=== PATIENT | male | born 1955 | race Caucasian/White ===

== ENCOUNTER 2020-03-27 12:37 | Emergency (ER) | payer MEDICARE, SELFPAY ==
[2020-03-27] VITALS (8 sets, daily range): BP systolic 129–185; BP diastolic 62–98; PULSE 52–63; RESP 15–19; TEMP 36.4; O2SAT 95–97; BMI 26.6
--- NOTE | 2020-03-27 12:49 | PC.NURSE ---
EKG done at 1247, and shown to ER doctor. Blood glucose is 210, nurse, charge nurse, and doctor were in formed.
[2020-03-27 12:51] LABS: Glucose Point of Care 210 mg/dL (70-110)
--- NOTE | 2020-03-27 13:00 | ED_ITS ---
HPI - Neuro Symptoms/Deficit General: Chief Complaint: Neuro Symptoms/Deficit Stated Complaint: stroke like symptoms Time Seen by Provider: 03/27/20 12:47 History of Present Illness: HPI Narrative: 64-year-old male comes in complaining of numbness and tingling in the left arm and left side of his chest sparing the left leg it started yesterday afternoon he also the left eye feels heavy on occasion he has had some blurry vision and coordination with the left arm and chest numbness. He gets disoriented and dizzy with this at the same time. States the symptoms have been waxing and waning since yesterday when they started. He has not noticed any chest pain. He has his normal baseline cough which is not changed from his usual. Onset (ago): day(s) (Yesterday related mid afternoon) Timing confirmed by: spouse Location: left arm and other (Left chest) History of same: No Severity: moderate Quality: numb and tingling Relieving factors: none Exacerbating factors: none Context: gradual onset On Anticoagulants: Yes Associated symptoms: Reports cough; Deny chest pain, diaphoresis, fevers/chills, headache(s), anorexia, malaise, nausea, seizures, short of breath, syncope, vomiting or weakness Treatments Prior to Arrival: none Review of Systems Const: Denies: malaise or diaphoresis ENMT: Denies: throat pain, ear or mastoid pain, nasal discharge or nasal congestion Card: Denies: chest pain or syncope Resp: Denies: dyspnea, productive cough or non-productive cough GI: Denies: nausea or vomiting : Denies: flank pain, dysuria, urinary frequency or urinary urgency Skin/Breast: Denies: rash or pruritus Neuro: Denies: headache(s) PFSH ED PFSH: Medical History (Updated 03/27/20 @ 16:35 by Brendon Campbell DO) CAD (coronary artery disease) COPD (chronic obstructive pulmonary disease) CVA (cerebral vascular accident) Peripheral vascular disease Surgical History (Updated 03/27/20 @ 13:09 by Brendon Campbell DO) History of carotid endarterectomy Hx of CABG 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 Iliac/femoral stenting Social History (Updated 03/27/20 @ 13:10 by Brendon Campbell DO) Smoking and tobacco status: never smoked Substance/Drug Use: never NIH stroke score NIHSS: Level Of Consciousness - 1a: 0 Level Of Consciousness Questions - 1b: Both Correct Level Of Consciousness Commands - 1c: Both Correct Best Gaze - 2: Normal Visual Danielle - 3: No Visual Loss Facial Palsy - 4: Normal Motor Arm Right - 5: No Drift Motor Arm Left - 5: No Drift Motor Leg Right - 6: No Drift Motor Leg Left - 6: No Drift Limb Ataxia - 7: Absent Sensory - 8: Normal Best Language - 9: No Aphasia Dysarthia - 10: Normal Extinction And Inattention - 11: 0 Score: Total Score: 0 Course Vital Signs: Vital signs: Vital Signs Temperature 97.6 F 03/27/20 12:44 Pulse Rate 56 L 03/27/20 16:56 Respiratory Rate 18 03/27/20 16:56 Blood Pressure 142/81 03/27/20 16:56 Pulse Oximetry 97 03/27/20 16:56 MDM - Neuro Symptoms/Deficit MDM Narrative: Medical decision making narrative: Reviewed findings with the patient. Will discharge home started on clopidogrel along with his aspirin follow-up with his primary care doctor as soon as possible for referral to vascular surgery Lab Data: Labs: Lab Results 03/27/20 03/27/20 03/27/20 Range/Units 12:43 12:50 12:50 WBC 6.8 (4.0-10.0) 10^3/ uL RBC 4.27 (4.1-5.3) 10^6/u L Hgb 13.4 (11.7-16.6) g/dL Hct 41.4 L (42.0-52.0) % MCV 97.0 H (80-94) fL MCH 31.4 (28.0-34.0) pg MCHC 32.4 (30.0-36.0) g/dL RDW 13.4 (12.1-15.1) % Plt Count 124 L (130-400) 10^3/c mm MPV 12.7 H (7.4-10.4) fL Neut % (Auto) 65.5 % Lymph % (Auto) 18.5 % [place] % (Auto) 10.2 % Eos % (Auto) 3.9 % Baso % (Auto) 1.0 % Neut # (Auto) 4.42 (1.8-7.7) 10^3/u L Lymph # (Auto) 1.3 (0.8-4.8) 10^3/u L [place] # (Auto) 0.7 (0.2-0.9) 10^3/u L Eos # (Auto) 0.3 (0.0-0.8) 10^3/u L Baso # (Auto) 0.1 (0.0-0.1) 10^3/u L Nucleated RBC % (a uto) 0 % Nucleated RBCs # 0.0 /100WBC PT 12.70 (10.5-13.3) SECO NDS INR 0.92 (0.8-1.2) APTT 24.6 (23.9-36.7) SECO NDS Sodium (136-145) mmol/L Potassium (3.5-5.1) mmol/L Chloride (98-107) mmol/L Carbon Dioxide (22-29) mmol/L Anion Gap (5-19) BUN (8-23) mg/dL Creatinine (0.7-1.2) mg/dL GFR Calculation (90-130) mL/min Glucose (65-115) mg/dL POC Glucose 210 (70-110) mg/dL Calculated Osmolal ity (285-295) mOsm/k g Calcium (8.5-10.5) mg/dL Total Bilirubin (0.15-1.2) mg/dL AST (0-40) U/L ALT (0-41) U/L Alkaline Phosphata se (40-130) IU/L Total Protein (6.6-8.7) g/dL Albumin (3.5-5.2) g/dL Globulin (1.3-4.6) g/dL Urine Color (Yellow) Urine Appearance (CLEAR) Urine pH (5-7) Ur Specific Gravit y (1.005-1.030) Urine Protein (Negative) Urine Glucose (UA) (Normal) Urine Ketones (Negative) Urine Blood (Negative) Urine Nitrate (Negative) Urine Bilirubin (NEGATIVE) Urine Urobilinogen (Negative) mg/dL Ur Leukocyte Suzi ase (Negative) Urine Opiates Scre en (Negative) ng/mL Ur Barbiturates Sc reen (Negative) ng/mL Ur Phencyclidine S crn (Negative) ng/mL Ur Amphetamines Sc reen (Negative) ng/mL U Benzodiazepines Scrn (Negative) ng/mL Urine Cocaine Scre en (Negative) ng/mL U Marijuana (THC) Screen (Negative) ng/mL 03/27/20 03/27/20 03/27/20 Range/Units 12:50 14:30 14:30 WBC (4.0-10.0) 10^3/ uL RBC (4.1-5.3) 10^6/u L Hgb (11.7-16.6) g/dL Hct (42.0-52.0) % MCV (80-94) fL MCH (28.0-34.0) pg MCHC (30.0-36.0) g/dL RDW (12.1-15.1) % Plt Count (130-400) 10^3/c mm MPV (7.4-10.4) fL Neut % (Auto) % Lymph % (Auto) % [place] % (Auto) % Eos % (Auto) % Baso % (Auto) % Neut # (Auto) (1.8-7.7) 10^3/u L Lymph # (Auto) (0.8-4.8) 10^3/u L [place] # (Auto) (0.2-0.9) 10^3/u L Eos # (Auto) (0.0-0.8) 10^3/u L Baso # (Auto) (0.0-0.1) 10^3/u L Nucleated RBC % (a uto) % Nucleated RBCs # /100WBC PT (10.5-13.3) SECO NDS INR (0.8-1.2) APTT (23.9-36.7) SECO NDS Sodium 135 L (136-145) mmol/L Potassium 4.2 (3.5-5.1) mmol/L Chloride 100 (98-107) mmol/L Carbon Dioxide 25 (22-29) mmol/L Anion Gap 14.2 (5-19) BUN 12 (8-23) mg/dL Creatinine 1.1 (0.7-1.2) mg/dL GFR Calculation 67.4 L (90-130) mL/min Glucose 192 H (65-115) mg/dL POC Glucose (70-110) mg/dL Calculated Osmolal ity 281 L (285-295) mOsm/k g Calcium 9.4 (8.5-10.5) mg/dL Total Bilirubin 0.4 (0.15-1.2) mg/dL AST 21 (0-40) U/L ALT 25 (0-41) U/L Alkaline Phosphata se 88 (40-130) IU/L Total Protein 7.4 (6.6-8.7) g/dL Albumin 4.5 (3.5-5.2) g/dL Globulin 2.9 (1.3-4.6) g/dL Urine Color Straw (Yellow) Urine Appearance Clear (CLEAR) Urine pH 6 (5-7) Ur Specific Gravit y 1.005 (1.005-1.030) Urine Protein Neg (Negative) Urine Glucose (UA) Norm (Normal) Urine Ketones Negative (Negative) Urine Blood Neg (Negative) Urine Nitrate Negative (Negative) Urine Bilirubin Neg (NEGATIVE) Urine Urobilinogen Norm (Negative) mg/dL Ur Leukocyte Suzi ase Negative (Negative) Urine Opiates Scre en Negative (Negative) ng/mL Ur Barbiturates Sc reen Negative (Negative) ng/mL Ur Phencyclidine S crn Negative (Negative) ng/mL Ur Amphetamines Sc reen Negative (Negative) ng/mL U Benzodiazepines Scrn Negative (Negative) ng/mL Urine Cocaine Scre en Negative (Negative) ng/mL U Marijuana (THC) Screen Negative (Negative) ng/mL Discharge Plan Discharge Patient Disposition: Home Clinical Impression: Transient cerebral ischemia, Stenosis of left vertebral artery, Carotid artery stenosis Condition: Stable Prescriptions: No Action atorvastatin 80 mg tablet 80 mg PO DAILY RF: 0 amiodarone 200 mg tablet 200 mg PO DAILY RF: 0 clopidogrel 75 mg tablet 75 mg PO DAILY RF: 0 isosorbide mononitrate 60 mg tablet extended release 24 hr 60 mg PO DAILY RF: 0 metoprolol tartrate 50 mg tablet 50 mg PO BID RF: 0 nitroglycerin 0.4 mg tablet, sublingual 0.4 mg sublingual PRN PRN (Reason: Chest Pain) RF: 0 aspirin 81 mg Tablet,Chewable 81 mg PO DAILY RF: 0 lisinopril 40 mg tablet 40 mg PO DAILY RF: 0 Discharge Orders: Discharge Order (Routine); Ordered 03/27/20 Ordered By: Brendon Campbell Discharge Diet: Usual diet Discharge Activity: Increase activity as tolerated Activity Restrictions/Additional Instructions: Monitor blood pressure closely. If you have persistent symptoms of numbness tingling or weakness return to the ER. Follow-up with your primary care doctor as soon as you are able for referral to vascular surgery. Discharge Date/Time: 03/27/20 16:57 Coding Level of Care Code ED [employer]ing Machine Operator for Jonathan Chowdhury
--- NOTE | 2020-03-27 13:00 | ECG_ITS ---
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 Measurements Intervals [place] Rate: 60 P: 68 [place]: 174 QRS: -41 QRSD: 189 T: 133 QT: 499 QTc: 501 Interpretive Statements SINUS RHYTHM LEFT AXIS DEVIATION [QRS AXIS < -30] LEFT BUNDLE BRANCH BLOCK [120+ ms QRS DURATION, 80+ ms Q/S IN V1/V2, 85+ ms R IN I/aVL/V5/V6] No previous ECG available for comparison Electronically Signed On 03-28-2020 12:44:14 CDT by Lizbet Dang M.D. [id number]
--- NOTE | 2020-03-27 13:00 | CTR_ITS ---
PROCEDURE INFORMATION: Exam: CT Head Without Contrast Exam date and time: 03/27/2020 1:11 PM Age: 64 years old Clinical indication: Numbness / parasthesia; Left; Additional info: Symptoms of acute stroke TECHNIQUE: Imaging protocol: Computed tomography of the head without contrast. Radiation optimization: All CT scans at this facility use at least one of these dose optimization techniques: automated exposure control; mA and/or kV adjustment per patient size (includes targeted exams where dose is matched to clinical indication); or iterative reconstruction. COMPARISON: No relevant prior studies available. RADIATION DOSE METRICS: Total DLP (mGy-cm): 774.57 FINDINGS: Brain: Old left frontal infarct. Small old left parietal infarct near the vertex. Periventricular and subcortical white matter low densities are present which at this age likely represent microvascular ischemic change. No evidence for large acute ischemic infarction. Please note acute ischemia can be occult by head CT. Ventricles: Normal. No ventriculomegaly. Bones/joints: Unremarkable. No acute fracture. Sinuses: Visualized sinuses are unremarkable. No fluid levels. Mastoid air cells: Visualized mastoid air cells are well aerated. Vasculature: Calcified plaque is present within the intracranial vasculature. Soft tissues: Unremarkable. CT/CT head wo con* [id number] IMPRESSION: There are old left frontal and parietal infarcts.There are senescent changes of the brain as described above. No evidence for large acute ischemic infarction or acute intracranial injury. Radiation Dose CTDIVOL = (mGy): DLP = 774.57 (mGy-cm)
--- NOTE | 2020-03-27 13:00 | XRR_ITS ---
PROCEDURE INFORMATION: Exam: XR Chest, 1 View Exam date and time: 03/27/2020 1:02 PM Age: 64 years old Clinical indication: Other: Left sided numbness; Additional info: Dyspnea TECHNIQUE: Imaging protocol: XR of the chest Views: 1 view. COMPARISON: No relevant prior studies available. FINDINGS: Lungs: Unremarkable. No consolidation. Pleural space: Unremarkable. No pleural effusion. No pneumothorax. Heart/Mediastinum: Unremarkable. No cardiomegaly. Bones/joints: Metallic sternotomy wires are in place XR/XR chest 1V portable [id number] IMPRESSION: 1. Negative for acute abnormality. 2. Metallic sternotomy wires are in place.
--- NOTE | 2020-03-27 13:15 | CTR_ITS ---
PROCEDURE INFORMATION: Exam: CT Angiography Head With Contrast Exam date and time: 03/27/2020 1:19 PM Age: 64 years old Clinical indication: Cognitive deficit; Type not specified; Additional info: TIA TECHNIQUE: Imaging protocol: Computed tomography angiography of the head with intravenous contrast. 3D rendering: MIP and/or 3D reconstructed images were created by the technologist. Radiation optimization: All CT scans at this facility use at least one of these dose optimization techniques: automated exposure control; mA and/or kV adjustment per patient size (includes targeted exams where dose is matched to clinical indication); or iterative reconstruction. Contrast material: OMNIPAQUE 350; Contrast volume: 95 ml; Contrast route: INTRAVENOUS (IV); COMPARISON: CT head wo con* [id number] 03/27/2020 1:07 PM RADIATION DOSE METRICS: Total DLP (mGy-cm): 2626.17 FINDINGS: Anterior cerebral arteries: No occlusion or significant stenosis. No aneurysm. Right internal carotid artery: Scattered atherosclerotic plaque most prominent in the carotid siphon. No significant focal stenosis. No large aneurysm. Right middle cerebral artery: No occlusion or significant stenosis. No aneurysm. Right posterior cerebral artery: No occlusion or significant stenosis. No aneurysm. Right vertebral artery: There is scattered atherosclerotic plaque. No significant focal stenosis or aneurysm. Left internal carotid artery: Scattered atherosclerotic plaque most prominent in the carotid siphon. No significant focal stenosis. No large aneurysm. Left middle cerebral artery: No occlusion or significant stenosis. No aneurysm. Left posterior cerebral artery: No occlusion or significant stenosis. No aneurysm. Left vertebral artery: There is scattered atherosclerotic plaque. No significant focal stenosis or aneurysm. Basilar artery: No occlusion or significant stenosis. No aneurysm. IMPRESSION: There is scattered atherosclerotic plaque most prominent in the carotid siphons. No significant focal stenosis or aneurysm. PROCEDURE INFORMATION: Exam: CT Angiography Neck With Contrast Exam date and time: 03/27/2020 1:19 PM Age: 64 years old Clinical indication: Cognitive deficit; Type not specified; Additional info: TIA TECHNIQUE: Imaging protocol: Computed tomography angiography of the neck with intravenous contrast. 3D rendering: MIP and/or 3D reconstructed images were created by the technologist. Radiation optimization: All CT scans at this facility use at least one of these dose optimization techniques: automated exposure control; mA and/or kV adjustment per patient size (includes targeted exams where dose is matched to clinical indication); or iterative reconstruction. Contrast material: OMNIPAQUE 350; Contrast volume: 95 ml; Contrast route: INTRAVENOUS (IV); COMPARISON: CT head wo con* [id number] 03/27/2020 1:07 PM RADIATION DOSE METRICS: Total DLP (mGy-cm): 2626.17 FINDINGS: Right common carotid artery: Scattered atherosclerotic plaque. No stenosis. No dissection or occlusion. Right internal carotid artery: There is atherosclerotic plaque in the proximal internal carotid artery with a short segment of 40% occlusion measuring 7 mm in the craniocaudad dimension. Right external carotid artery: There is atherosclerotic plaque at the origin. No occlusion or stenosis of the origin. Right vertebral artery: Scattered atherosclerotic plaque with no significant focal stenosis. No large aneurysm. Left common carotid artery: No stenosis. No dissection or occlusion. Left internal carotid artery: No stenosis of the extracranial segment. No dissection or occlusion. Left external carotid artery: No occlusion or stenosis of the origin. Left vertebral artery: There is atherosclerotic plaque at the origin with a short segment of 90% stenosis measuring 3 mm in the craniocaudad dimension. Scattered atherosclerotic plaque throughout. Bones/joints: No acute fracture. Soft tissues: There are emphysematous changes at the lung apices. There are post sternotomy changes. Degenerative changes are present in the visualized spine. Multilevel cervical broad-based disc osteophyte complexes. CT/CT angio headneck* [id number] IMPRESSION: 1. There is atherosclerotic plaque at the origin of the left vertebral artery with a short segment of 90% stenosis measuring 3 mm in the craniocaudad dimension. 2. There is atherosclerotic plaque in the proximal right internal carotid artery with a short segment of 40% occlusion . REFERENCES: NASCET CRITERIA. The degree of internal carotid artery stenosis is based on NASCET criteria. Normal is no stenosis. Mild is less than 50% stenosis. Moderate is 50-69% stenosis. Severe is 70% to 99% stenosis. Total occlusion is no detectable patent lumen. Radiation Dose CTDIVOL = (mGy): DLP = 2626.17~2626.17 (mGy-cm)
--- NOTE | 2020-03-27 13:17 | PC.NURSE ---
Pt in CT
[2020-03-27 13:30] LABS: Basophils # 0.1 10^3/uL (0.0-0.1); Eosinophils # 0.3 10^3/uL (0.0-0.8); Eosinophils % 3.9 %; Hematocrit 41.4 % (42.0-52.0); Hemoglobin 13.4 g/dL (11.7-16.6); Lymphocytes # 1.3 10^3/uL (0.8-4.8); Lymphocytes % 18.5 %; Mean Corpuscular HGB Conc 32.4 g/dL (30.0-36.0); Mean Corpuscular Hemoglobin 31.4 pg (28.0-34.0); Mean Platelet Volume 12.7 fL (7.4-10.4); Monocytes # 0.7 10^3/uL (0.2-0.9); Monocytes % 10.2 %; Neutrophils # 4.42 10^3/uL (1.8-7.7); Neutrophils % 65.5 %; Nucleated Red Blood Cells % 0 %; Platelet Count 124 10^3/cmm (130-400); Red Blood Count 4.27 10^6/uL (4.1-5.3); Red Cell Distribution Width 13.4 % (12.1-15.1); White Blood Count 6.8 10^3/uL (4.0-10.0)
[2020-03-27 13:32] LABS: INR 0.92 (0.8-1.2)
[2020-03-27 13:33] LABS: Partial Thromboplastin Time 24.6 SECONDS (23.9-36.7)
--- NOTE | 2020-03-27 13:46 | PC.NURSE ---
Pt states he is still unable to void at this time.
[2020-03-27 13:55] LABS: Alanine Aminotransferase 25 U/L (0-41); Albumin Level 4.5 g/dL (3.5-5.2); Alkaline Phosphatase 88 IU/L (40-130); Anion Gap 14.2 (5-19); Aspartate Amino Transferase 21 U/L (0-40); Blood Urea Nitrogen 12 mg/dL (8-23); Calcium 9.4 mg/dL (8.5-10.5); Carbon Dioxide 25 mmol/L (22-29); Chloride 100 mmol/L (98-107); Creatinine Clr Calc Pharmacy 72.0453; Globulin 2.9 g/dL (1.3-4.6); Glomerular Filtration Rate 67.4 mL/min (90-130); Glucose 192 mg/dL (65-115); Osmolality Calculated 281 mOsm/kg (285-295); Potassium 4.2 mmol/L (3.5-5.1); Sodium 135 mmol/L (136-145); Total Bilirubin 0.4 mg/dL (0.15-1.2); Total Protein 7.4 g/dL (6.6-8.7)
[2020-03-27] MEDS: iohexol 350 mg/mL 100 mL Btl IV (14:25)
[2020-03-27 14:53] LABS: Add Urine Microscopic? NO
[2020-03-27 15:01] LABS: Bilirubin Urine Neg (NEGATIVE); Blood Urine Neg (Negative); Glucose Urine UA Norm (Normal); Ketones Urine Negative (Negative); Leukocyte Esterase Urine Negative (Negative); Nitrate Urine Negative (Negative); Protein Urine Neg (Negative); Specific Gravity, Urine 1.005 (1.005-1.030); Urine Appearance Clear (CLEAR); Urine Color Straw (Yellow); Urobilinogen Urine Norm (Negative); pH Urine 6 (5-7)
[2020-03-27 15:08] LABS: Amphetamines Screen Urine Negative (Negative); Barbiturates Screen Urine Negative (Negative); Benzodiazepines Screen Urine Negative (Negative); Cocaine Screen Urine Negative (Negative); Opiate Screen Urine Negative (Negative); PCP Screen Urine Negative (Negative); THC Screen Urine Negative (Negative)
== END 2020-03-27 16:57 | disposition home or self-care (01) ==
PROVIDERS: Emergency Provider Family Medicine
DX: G45.9 Transient cerebral ischemic attack, unspecified (principal); I65.02 Occlusion and stenosis of left vertebral artery; I65.29 Occlusion and stenosis of unspecified carotid artery; Z79.82 Long term (current) use of aspirin; Z79.02 Long term (current) use of antithrombotics/antiplatelets; I25.10 Atherosclerotic heart disease of native coronary artery without angina pectoris; J44.9 Chronic obstructive pulmonary disease, unspecified; Z86.73 Personal history of transient ischemic attack (TIA), and cerebral infarction without residual deficits; I73.9 Peripheral vascular disease, unspecified; Z95.1 Presence of aortocoronary bypass graft; Z79.899 Other long term (current) drug therapy
CPT/HCPCS: 12345; 36416; 70450; 70496; 70498; 71045; 80053; 80306; 81003; 82962; 85025; 85610; 85730; 93005; 99284; Q9967

== ENCOUNTER → 2025-03-18 08:40 | Outpatient (BNVA) | payer MEDICARE, SELFPAY | DX: I63.9 Cerebral infarction, unspecified (principal); I10 Essential (primary) hypertension | CPT/HCPCS: 80053; 80061; 85025 ==

== ENCOUNTER → 2025-03-24 08:52 | Outpatient (BNVA) | payer MEDICARE, SELFPAY | DX: Z00.00 Encounter for general adult medical examination without abnormal findings (principal); Z12.5 Encounter for screening for malignant neoplasm of prostate | CPT/HCPCS: G0103 ==

== ENCOUNTER 2025-03-31 09:21 | Outpatient (CLI) | payer MEDICARE, SELFPAY ==
--- NOTE | 2025-03-31 10:15 | CT_ITS ---
WS: [id number] LDCT LUNG CANCER SCREENING TECHNIQUE: Noncontrast CT of the chest with coronal and sagittal reformatted images. CLINICAL INFORMATION: screening COMPARISON: None. DLP: 63.29 mGy.cm DIvol: Mean CTDIvol: 1.00 (mGy) All CT scans at [facility] use at least one of these dose optimization techniques: automated exposure control; mA and/or kV adjustment per patient size (includes targeted exams where dose is matched to clinical indication); or iterative reconstruction. FINDINGS: No suspicious pulmonary parenchymal abnormalities. Sternotomy. Cardiomegaly. Aortic calcification. CABG. Coronary calcification. No mediastinal or hilar lymphadenopathy. No axillary lymphadenopathy. Adrenal glands are normal. Small esophageal hiatal hernia. Fluid distended stomach. Mild thoracic curve. Mild thoracic kyphosis. CT/CT lung screening [id number] IMPRESSION: LUNG-RADS: 1-Negative FOLLOW UP: 12 Month: Continue annual screening with LDCT
== END 2025-03-31 09:22 | disposition home or self-care (01) ==
DX: Z12.2 Encounter for screening for malignant neoplasm of respiratory organs (principal); F17.211 Nicotine dependence, cigarettes, in remission; I51.7 Cardiomegaly; I35.8 Other nonrheumatic aortic valve disorders; M40.204 Unspecified kyphosis, thoracic region; M43.8X4 Other specified deforming dorsopathies, thoracic region
CPT/HCPCS: 71271

== ENCOUNTER → 2025-05-06 12:24 | Outpatient (BNVA) | payer MEDICARE, SELFPAY | PROVIDERS: Visit Provider Internal Medicine | DX: I25.810 Atherosclerosis of coronary artery bypass graft(s) without angina pectoris (principal); I10 Essential (primary) hypertension; I73.9 Peripheral vascular disease, unspecified; E78.5 Hyperlipidemia, unspecified; I65.29 Occlusion and stenosis of unspecified carotid artery; Z95.5 Presence of coronary angioplasty implant and graft; Z86.73 Personal history of transient ischemic attack (TIA), and cerebral infarction without residual deficits; Z87.891 Personal history of nicotine dependence; R07.9 Chest pain, unspecified; I65.23 Occlusion and stenosis of bilateral carotid arteries | CPT/HCPCS: 93005; 99204 ==